=== PATIENT | male | born 1970 | race African-American/Black ===

== ENCOUNTER 2019-09-07 19:14 | Observation (INO) ==
[2019-09-07 20:04] LABS: Basophils # (auto) 0.04 K/uL (0-0.2); Basophils % (auto) 0.6 %; Eosinophils # (auto) 0.12 K/uL (0-0.5); Eosinophils % (auto) 1.7 %; Hemoglobin 16.2 g/dL (14.0-18.0); Immature Granulocytes # (auto) 0.02 K/uL (0.00-0.02); Immature Granulocytes % (auto) 0.3 %; Lymphocytes # (auto) 1.06 K/uL (1.2-3.4); Lymphocytes % (auto) 14.7 %; Mean Corpuscular Hemoglobin 34.2 pg (25-34); Mean Corpuscular Hgb Conc 36.8 g/dL (32-36); Mean Corpuscular Volume 92.8 fL (80-100); Monocytes # (auto) 0.63 K/uL (0.11-0.59); Monocytes % (auto) 8.7 %; Neutrophils # (auto) 5.34 K/uL (1.4-6.5); Platelet Count 209 K/uL (130-400); RDW Coefficient of Variation 12.8 % (11.5-14.5); RDW Standard Deviation 43.7 fL (36.4-46.3); Red Blood Count 4.74 M/uL (4.7-6.1); White Blood Count 7.21 K/uL (4.8-10.8)
--- NOTE | 2019-09-07 20:13 | XRay Report ---
XR chest 1V portable CLINICAL HISTORY: Atypical chest pain COMPARISON STUDY: No previous studies for comparison. FINDINGS: The cardiac and mediastinal contours are normal. There is no evidence of focal pulmonary co nsolidation. There is no evidence of failure. No pleural effusions are visualized.[ IMPRESSION: No active disease in the chest. Electronically signed by: Jas Dotson M.D. 09/07/2019 8:12 PM
[2019-09-07 20:24] LABS: Alanine Aminotransferase 82 U/L (12-78); Albumin Level 4.1 gm/dl (3.4-5.0); Aspartate Aminotransferase 62 U/L (15-37); BUN Creatinine Ratio 13.6 (10-20); Blood Urea Nitrogen 17 mg/dl (7-18); Calcium 9.5 mg/dl (8.5-10.1); Carbon Dioxide 28 mmol/L (21-32); Chloride 103 mmol/L (98-107); Est GFR (African American) 77.9; Est GFR (Non-African American) 67.2; Glucose 125 mg/dl (70-99); Lipase 70 U/L (73-393); Potassium 3.5 mmol/L (3.5-5.1); Sodium 138 mmol/L (136-145)
[2019-09-07 20:27] LABS: Alkaline Phosphatase 67 U/L (45-117); Bilirubin,Total 0.9 mg/dl (0.2-1); Total Protein 8.1 gm/dl (6.4-8.2)
[2019-09-07 20:45] LABS: D Dimer 500 ug/L FEU (0-500)
[2019-09-07 22:59] LABS: Magnesium 2.3 mg/dl (1.8-2.4)
[2019-09-07 23:36] LABS: Partial Thromboplastin Ratio 0.9; Partial Thromboplastin Time 25.4 Seconds (21.0-31.0)
[2019-09-07] MEDS ORDERED: ASPIRIN 325 MG ECTAB PO STA (23:48)
[2019-09-07] MEDS ORDERED: hydroCHLOROthiazide 25 MG TAB ONE (23:54)
[2019-09-07] MEDS ORDERED: ASPIRIN 81 MG ECTAB PO ONE (23:55)
--- NOTE | 2019-09-08 00:29 | Emergency Department Note ---
Entered by Jean Verdugo acting as a scribe for Jose Ramon Norton MD History of Present Illness General Chief complaint: Cardiac Assessment Stated complaint: CARDIAC ASSESSMENT, Source: patient and other (guards) History of Present Illness Onset (ago): hour(s) (7.5) Location: chest and left (upper) Pain Consistency: + now resolved Quality: + aching Relieved By: + other (lying down) Associated symptoms: + other (sweating, lightheaded); no shortness of breath The patient is a 49 y/o male w/ PMHx HTN, high triglycerides, neuropathy, prediabetes who presents to the ED w/ CC of a resolved episode of achiness to the left upper chest that occurred 7.5 hours ago. The patient states he is in a dry cell at the care home with no human contact. He reports around 1200 today, he developed achiness in his left upper chest, started sweating, and became lightheaded. Lying down was the only way to help his symptoms. He states the temperature in the cell was normal despite his sweating. The patient notes he does not know how long it lasted for, and he currently does not have his symptoms. He states his EKG at the care home was abnormal, so they sent him to the ED. The guards report he has a history of HTN and takes hydrochlorothiazide. They note he has not been taking for the past 5 days because he was placed in the dry cell. The patient states he has a significant family history of heart trouble with his parents, and he has not had a stress test before. He reports he has a heavy history of cocaine and tobacco use. The patient notes he last used cocaine in 2003 and last smoked a cigarette on 06/07/19. He denies shortness of breath. Home Medications Home Medications Medication Instructions Recorded Confirmed Type Therm-M 1 tab PO DAILY 09/07/19 09/07/19 History gntrzztmw-dynxswlh-yivurwa ala 1 tab PO DAILY 09/07/19 09/07/19 History [Biktarvy] cholecalciferol (vitamin D3) 5,000 unit PO DAILY 09/07/19 09/07/19 History [Vitamin D3] gemfibrozil [Lopid] 600 mg PO BID 09/07/19 09/07/19 History hydrochlorothiazide 25 mg PO DAILY 09/07/19 09/07/19 History Allergies Allergy/AdvReac Type Severity Reaction Status Date / Time lidocaine [From Xylocaine] Allergy Unknown Verified 09/07/19 19:59 lactose AdvReac Gastrointestinal Verified 09/07/19 19:59 Upset CONTRAST DYE Allergy Unknown Uncoded 09/07/19 19:59 SEAFOOD Allergy Unknown Uncoded 09/07/19 19:59 Past Med/Surg History Medical History Prediabetes High triglycerides Neuropathy HTN (hypertension) Surgical History No pertinent past surgical history Family History Other Heart disease Hypertension Social History Preferred Language: Israeli Feels Safe at Home: Yes Smoking Status: Former smoker Review of Systems See HPI for pertinent positives & negatives. and A total of 10 systems reviewed and were otherwise negative Physical Exam Vital Signs Vital Signs - 24 hr 09/07/19 19:17 09/07/19 20:00 09/07/19 20:21 Temperature 37.2 C Temperature Source Oral Sepsis Action Taken by Nursing No Action Required Pulse Rate 104 H Pulse Rate [Finger] 95 H Pulse Rhythm [Finger] Pulse Strength [Finger] Respiratory Rate 20 20 Respiratory Effort / Characteristics Non-Labored Spontaneous Non-Labored Spontaneous Respiratory Depth Normal Normal Respiratory Pattern Blood Pressure 146/96 H Blood Pressure [Right Arm] 152/105 H Blood Pressure Mean 112 Blood Pressure Mean [Right Arm] 120 Pulse Oximetry 99 99 98 Oxygen Delivery Method Room Air Room Air Room Air 09/07/19 21:23 09/07/19 23:02 09/07/19 23:57 Temperature Temperature Source Sepsis Action Taken by Nursing Pulse Rate Pulse Rate [Finger] 84 85 88 Pulse Rhythm [Finger] Regular Regular Pulse Strength [Finger] Normal Normal Respiratory Rate 20 20 20 Respiratory Effort / Characteristics Non-Labored Spontaneous Non-Labored Spontaneous Respiratory Depth Normal Normal Respiratory Pattern Regular Regular Blood Pressure Blood Pressure [Right Arm] 160/108 H 153/101 H 153/101 H Blood Pressure Mean Blood Pressure Mean [Right Arm] 125 118 118 Pulse Oximetry 98 97 98 Oxygen Delivery Method Room Air Room Air Room Air Constitutional: Vital signs reviewed. Eyes: Pupils are equal round reactive to light. Conjunctiva are noninjected. ENT: Pharynx is clear without erythema or exudate. Mucous membranes are moist. Neck supple without meningeal signs. Respiratory: Clear to auscultation bilaterally. Breath sounds are equal bilaterally. Cardiovascular: Regular rate and rhythm. No rubs or gallops. GI: Soft, nondistended and nontender. Bowel sounds are present. Musculoskeletal: No peripheral edema. No lower extremity tenderness. Integumentary: No cyanosis. Neurological: The patient is awake and alert. No focal deficits. Psychiatric: Normal affect. Course 1925: Past medical records reviewed. The patient was evaluated in room A04B. A complete history and physical exam was performed. 2057: I reevaluated the patient. He currently has no symptoms. His troponin at 1999 was 0 with a negative lab d-dimer. A repeat troponin will be taken at 2129. 2212: Upon reevaluation, the patient is resting comfortably and is chest pain free. I discussed laboratory and radiographic results with him. His HEART score is 4. He verbalized agreement of the treatment plan. The patient will be evaluated for further management and care. 2222: I reviewed the patient's case with Dr. Arenas, [place]ist. He will evaluate the patient for further management. Administered Medications Discontinued Medications Aspirin (Ecotrin Ectab) Confirm Administered Dose 81 mg PO .STK-MED ONE Stop: 09/07/19 23:56 Last Admin: 09/07/19 23:56 Dose: 81 mg Documented by: [id number] Hydrochlorothiazide (Hctz) Confirm Administered Dose 25 mg .ROUTE .STK-MED ONE Stop: 09/07/19 23:55 Last Admin: 09/07/19 23:57 Dose: 25 mg Documented by: [id number] Medical Decision Making Differential Diagnosis Differential diagnosis includes: unstable angina, FL, pleurisy, PE, pneumonia, MSK pain Medical Records Attestation: I reviewed the patient's medical records. I did perform a limited focused review of portions of the patient's old chart on the electronic medical record. The patient has had no recent pertinent visits to this hospital. Home Medications Current Medication List: was personally reviewed by me Laboratory Data Attestation: I reviewed the patient's lab results. Result diagrams: 09/07/19 19:56 09/07/19 19:56 Lab Results 09/07/19 09/07/19 09/07/19 Range/Units 19:11 19:56 19:56 WBC 7.21 (4.8-10.8) K/uL RBC 4.74 (4.7-6.1) M/uL Hgb 16.2 (14.0-18.0) g/dL Hct 44.0 (42-52) % MCV 92.8 (80-100) fL MCH 34.2 H (25-34) pg MCHC 36.8 H (32-36) g/dL RDW Std Deviation 43.7 (36.4-46.3) fL RDW Coeff of Selina 12.8 (11.5-14.5) % Plt Count 209 (130-400) K/uL MPV 10.0 (7.4-10.4) fL Immature Gran % (Auto) 0.3 % Neut % (Auto) 74.0 % Lymph % (Auto) 14.7 % [place] % (Auto) 8.7 % Eos % (Auto) 1.7 % Baso % (Auto) 0.6 % Immature Gran # (Auto) 0.02 (0.00-0.02) K/uL Neut # (Auto) 5.34 (1.4-6.5) K/uL Lymph # (Auto) 1.06 L (1.2-3.4) K/uL [place] # (Auto) 0.63 H (0.11-0.59) K/uL Eos # (Auto) 0.12 (0-0.5) K/uL Baso # (Auto) 0.04 (0-0.2) K/uL APTT (21.0-31.0) Seconds PTT Ratio D-Dimer Cancelled Sodium 138 (136-145) mmol/L Potassium 3.5 (3.5-5.1) mmol/L Chloride 103 (98-107) mmol/L Carbon Dioxide 28 (21-32) mmol/L Anion Gap 8.0 (3-11) BUN 17 (7-18) mg/dl Creatinine 1.25 (0.6-1.4) mg/dl Est Cr Clr Drug Dosing Not Reportable Est GFR ( Amer) 77.9 Est GFR (Non-Af Amer) 67.2 BUN/Creatinine Ratio 13.6 (10-20) Glucose 125 H (70-99) mg/dl Calcium 9.5 (8.5-10.1) mg/dl Magnesium 2.3 (1.8-2.4) mg/dl Total Bilirubin 0.9 (0.2-1) mg/dl AST 62 H (15-37) U/L ALT 82 H (12-78) U/L Alkaline Phosphatase 67 (45-117) U/L POC Troponin I (0-0.045) ng/ml Total Protein 8.1 (6.4-8.2) gm/dl Albumin 4.1 (3.4-5.0) gm/dl Globulin 4.0 (2.5-4.0) gm/dl Albumin/Globulin Ratio 1.0 (0.9-2) Lipase 70 L (73-393) U/L 09/07/19 09/07/19 09/07/19 Range/Units 20:29 20:29 21:45 WBC (4.8-10.8) K/uL RBC (4.7-6.1) M/uL Hgb (14.0-18.0) g/dL Hct (42-52) % MCV (80-100) fL MCH (25-34) pg MCHC (32-36) g/dL RDW Std Deviation (36.4-46.3) fL RDW Coeff of Selina (11.5-14.5) % Plt Count (130-400) K/uL MPV (7.4-10.4) fL Immature Gran % (Auto) % Neut % (Auto) % Lymph % (Auto) % [place] % (Auto) % Eos % (Auto) % Baso % (Auto) % Immature Gran # (Auto) (0.00-0.02) K/uL Neut # (Auto) (1.4-6.5) K/uL Lymph # (Auto) (1.2-3.4) K/uL [place] # (Auto) (0.11-0.59) K/uL Eos # (Auto) (0-0.5) K/uL Baso # (Auto) (0-0.2) K/uL APTT 25.4 (21.0-31.0) Seconds PTT Ratio 0.9 D-Dimer 500 Sodium (136-145) mmol/L Potassium (3.5-5.1) mmol/L Chloride (98-107) mmol/L Carbon Dioxide (21-32) mmol/L Anion Gap (3-11) BUN (7-18) mg/dl Creatinine (0.6-1.4) mg/dl Est Cr Clr Drug Dosing Est GFR ( Amer) Est GFR (Non-Af Amer) BUN/Creatinine Ratio (10-20) Glucose (70-99) mg/dl Calcium (8.5-10.1) mg/dl Magnesium (1.8-2.4) mg/dl Total Bilirubin (0.2-1) mg/dl AST (15-37) U/L ALT (12-78) U/L Alkaline Phosphatase (45-117) U/L POC Troponin I < 0.03 (0-0.045) ng/ml Total Protein (6.4-8.2) gm/dl Albumin (3.4-5.0) gm/dl Globulin (2.5-4.0) gm/dl Albumin/Globulin Ratio (0.9-2) Lipase (73-393) U/L Imaging Data Radiologist's Impression: Radiology results as stated below per my review and the radiologist's interpretation: XR chest 1V portable CLINICAL HISTORY: Atypical chest pain COMPARISON STUDY: No previous studies for comparison. FINDINGS: The cardiac and mediastinal contours are normal. There is no evidence of focal pulmonary consolidation. There is no evidence of failure. No pleural effusions are visualized.[ IMPRESSION: No active disease in the chest. Electronically signed by: Jas Dotson M.D. 09/07/2019 8:12 PM ECG Data Attestation: I personally reviewed and interpreted this ECG as follows: Indication: chest pain Rate (beats per minute): 81 Rhythm: normal sinus Findings: + other (Biphasic T-waves in V3-V6, LVH); no ST elevation Comparison ECG Date: no prior available Additional Comments: SECOND EKG IN THE SAME VISIT: Normal sinus 84, LVH. no ST elevation or PVCs. The t-waves have become upright. Blood Pressure Blood Pressure Findings: Elevated blood pressure Blood Pressure Disposition: further management by hospitalist [facility] Narrative I did evaluate the patient as noted above. The patient is presenting with left- sided chest pain today. It is now resolved. He does have multiple risk factors for cardiac disease including family history, high triglycerides, hypertension, diabetes, former tobacco and cocaine abuse. IV access was established. 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 I did order and personally review the patient's 12-lead EKG as described above. His twelve-lead EKG shows T wave abnormalities as noted above. No EKG was available for comparison. He is currently without chest pain. I did order and personally reviewed the images of the patient's chest x-ray as described above. Chest x-ray was unremarkable. I did order and review the patient's blood work as noted in the electronic medical record. D-dimer is negative. Troponin is 0. I did repeat his twelve- lead EKG as well as a second troponin 90 minutes after the first. The second troponin was negative but his twelve-lead EKG now shows that his T wave inversions are gone. Given his multiple risk factors as well as dynamic EKG changes I did recommend hospitalization. He does have a heart score of 4 and therefore does not qualify for the heart pathway for early discharge from the ED. I did talk to the patient who is agreeable to hospitalization. I did discuss case with the hospitalist and case management manager. Impression & Plan Left-sided chest pain, Abnormal ECG Discharge Plan Visit Data Chief Complaint: Cardiac Assessment Stated Complaint: CARDIAC ASSESSMENT, ED Provider: Jose Ramon Norton Discharge Problem: Left-sided chest pain, Abnormal ECG Patient Disposition: Being Evaluated by Hospitalist Forms Stand Alone Forms: My [facility] Prescriptions Prescriptions: No Action gemfibrozil [Lopid] 600 mg Tablet 600 mg PO BID RF: 0 hydrochlorothiazide 25 mg Tablet 25 mg PO DAILY RF: 0 cholecalciferol (vitamin D3) [Vitamin D3] 5,000 unit Tablet 5,000 unit PO DAILY RF: 0 Biktarvy 50-200-25 mg Tablet 1 tab PO DAILY RF: 0 Therm-M 1 tab PO DAILY RF: 0 Referrals Referrals: [facility] [Primary Care Provider] - The scribe's documentation has been prepared under my direction and personally reviewed by me in its entirety. I confirm that the note above accurately reflects all work, treatment, procedures, and medical decision making performed by me.
--- NOTE | 2019-09-08 00:36 | History & Physical Report ---
Date of Service September 07, 2019 Assessment & Plan (1) Left-sided chest pain: Possibly from uncontrolled blood pressure secondary to medication noncompliance Rule out ACS hyperlipidemia on rx HIV, stable on regimen Transaminitis, possible fatty liver prediabetes ongoing tobacco abuse OBS PCU Facilitate home HCTZ Add CAROL inhibitor if still uncontrolled Follow troponin, stress echo if a.m. troponin within normal limits Check lipid profile, hemoglobin A1c Nicotine patch PRN DVT prophylaxis. Lovenox subcu Full code History of Present Illness Chief Complaint: Chest pain Primary Care Provider: BRETT Hawthorne History obtained from patient and records. Medical history significant for hypertension, hyperlipidemia, HIV, prediabetes, ongoing tobacco abuse. Patient had achy left-sided sided chest discomfort today associated with shortness of breath and diaphoreses. No unusual cough symptoms, no radiation. SBP 200s in usp as per patient. Patient refused diuretic Rx the last 2 days because of inconvenience with having to urinate after taking medication. Spontaneous resolution of chest pain. Chest pain would occur about twice a month the last few months. 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 Allergies Allergy/AdvReac Type Severity Reaction Status Date / Time Fish Containing Products Allergy Unknown Verified 09/08/19 07:45 lidocaine [From Xylocaine] Allergy Unknown Verified 09/07/19 19:59 shellfish derived Allergy Unknown Verified 09/08/19 07:45 lactose AdvReac Gastrointestinal Verified 09/07/19 19:59 Upset CONTRAST DYE Allergy Unknown Uncoded 09/07/19 19:59 SEAFOOD Allergy Unknown Uncoded 09/07/19 19:59 Home Medications Home Medications Medication Instructions Recorded Confirmed Type Therm-M 1 tab PO DAILY 09/07/19 09/07/19 History pmvgbbnvh-hseqioyh-dcohvqt ala 1 tab PO DAILY 09/07/19 09/07/19 History [Biktarvy] cholecalciferol (vitamin D3) 5,000 unit PO DAILY 09/07/19 09/07/19 History [Vitamin D3] gemfibrozil [Lopid] 600 mg PO BID 09/07/19 09/07/19 History hydrochlorothiazide 25 mg PO DAILY 09/07/19 09/07/19 History Past Med/Surg History Medical History Prediabetes High triglycerides Neuropathy HTN (hypertension) Surgical History No pertinent past surgical history Family History Sister Coronary heart disease 40's Father Coronary heart disease 40's Mother Coronary heart disease 40's Other Heart disease Hypertension Social History Preferred Language: Welsh Communication Ability: Effective Lip Reading Teacher Required: No Beliefs That Will Affect Care: None Current Living Situation: Other Current Living Situation Comment: [facility] Other Information That Helps Us Care for You: No ([facility]) Feels Safe at Home: Yes Safety Concerns: Feels Safe At This Time Smoking Status: Current some day smoker Tobacco Type: cigarettes and e- cigarettes ; Hx Alcohol Use: No Hx Substance Use: No Review of Systems Review of Systems: As per HPI, all 10 systems reviewed, all other ROS negative Physical Exam Physical Exam: GENERAL: Comfortable, slightly anxious, no respiratory distress SKIN: Normal color, warm HEENT: Alopecia, pink palpebral conjunctivae, no ptosis, dry buccal mucosa NECK : Supple, no tenderness CHEST : CTA, no tenderness HEART : RRR, no obvious murmurs ABDOMEN: Some distention, nontender EXTREMITIES : Minimal RLE swelling (chronic), minimal RLE/tenderness, no other conspicuous deformities noted NEUROLOGIC : Coherent, no facial asymmetry, no other gross focality Results & Data Vital Signs (Past 12 Hours) Vital Signs Temp Pulse Pulse Resp BP BP Pulse Ox 09/07/19 23:57 88 20 153/101 H 98 09/07/19 23:02 85 20 153/101 H 97 09/07/19 21:23 84 20 160/108 H 98 09/07/19 20:21 95 H 20 152/105 H 98 09/07/19 20:00 99 09/07/19 19:17 37.2 C 104 H 20 146/96 H 99 Laboratory Results Laboratory Results WBC 7.21 K/uL (4.8-10.8) 09/07/19 19:56 RBC 4.74 M/uL (4.7-6.1) 09/07/19 19:56 Hgb 16.2 g/dL (14.0-18.0) 09/07/19 19:56 Hct 44.0 % (42-52) 09/07/19 19:56 MCV 92.8 fL (80-100) 09/07/19 19:56 MCH 34.2 pg (25-34) H 09/07/19 19:56 MCHC 36.8 g/dL (32-36) H 09/07/19 19:56 RDW Std Deviation 43.7 fL (36.4-46.3) 09/07/19 19:56 RDW Coeff of Selina 12.8 % (11.5-14.5) 09/07/19 19:56 Plt Count 209 K/uL (130-400) 09/07/19 19:56 MPV 10.0 fL (7.4-10.4) 09/07/19 19:56 Immature Gran % (Auto) 0.3 % 09/07/19 19:56 Neut % (Auto) 74.0 % 09/07/19 19:56 Lymph % (Auto) 14.7 % 09/07/19 19:56 [place] % (Auto) 8.7 % 09/07/19 19:56 Eos % (Auto) 1.7 % 09/07/19 19:56 Baso % (Auto) 0.6 % 09/07/19 19:56 Immature Gran # (Auto) 0.02 K/uL (0.00-0.02) 09/07/19 19:56 Neut # (Auto) 5.34 K/uL (1.4-6.5) 09/07/19 19:56 Lymph # (Auto) 1.06 K/uL (1.2-3.4) L 09/07/19 19:56 [place] # (Auto) 0.63 K/uL (0.11-0.59) H 09/07/19 19:56 Eos # (Auto) 0.12 K/uL (0-0.5) 09/07/19 19:56 Baso # (Auto) 0.04 K/uL (0-0.2) 09/07/19 19:56 APTT 25.4 Seconds (21.0-31.0) 09/07/19 20:29 PTT Ratio 0.9 09/07/19 20:29 D-Dimer 500 ug/L FEU (0-500) 09/07/19 20:29 Sodium 138 mmol/L (136-145) 09/07/19 19:56 Potassium 3.5 mmol/L (3.5-5.1) 09/07/19 19:56 Chloride 103 mmol/L (98-107) 09/07/19 19:56 Carbon Dioxide 28 mmol/L (21-32) 09/07/19 19:56 Anion Gap 8.0 (3-11) 09/07/19 19:56 BUN 17 mg/dl (7-18) 09/07/19 19:56 Creatinine 1.25 mg/dl (0.6-1.4) 09/07/19 19:56 Est Cr Clr Drug Dosing Not Reportable 09/07/19 19:56 Est GFR ( Amer) 77.9 09/07/19 19:56 Est GFR (Non-Af Amer) 67.2 09/07/19 19:56 BUN/Creatinine Ratio 13.6 (10-20) 09/07/19 19:56 Glucose 125 mg/dl (70-99) H 09/07/19 19:56 Calcium 9.5 mg/dl (8.5-10.1) 09/07/19 19:56 Magnesium 2.3 mg/dl (1.8-2.4) 09/07/19 19:56 Total Bilirubin 0.9 mg/dl (0.2-1) 09/07/19 19:56 AST 62 U/L (15-37) H 09/07/19 19:56 ALT 82 U/L (12-78) H 09/07/19 19:56 Alkaline Phosphatase 67 U/L (45-117) 09/07/19 19:56 POC Troponin I < 0.03 ng/ml (0-0.045) 09/07/19 21:45 Total Protein 8.1 gm/dl (6.4-8.2) 09/07/19 19:56 Albumin 4.1 gm/dl (3.4-5.0) 09/07/19 19:56 Globulin 4.0 gm/dl (2.5-4.0) 09/07/19 19:56 Albumin/Globulin Ratio 1.0 (0.9-2) 09/07/19 19:56 Lipase 70 U/L (73-393) L 09/07/19 19:56 Diagnostic Findings Chest x-ray : No active disease EKG as per my interpretation : Rate 80, NSR, LAD, LAFB, LVH, diffuse T wave flattening
[2019-09-08] MEDS ORDERED: NITROGLYCERIN SL 0.4 MG/TAB TAB SL PRN (01:02)
[2019-09-08] MEDS ORDERED: MoRPHine SULFATE 4 MG/ML 1 ML CARP\\VIAL IV PRN (01:02)
[2019-09-08] MEDS ORDERED: ACETAMINOPHEN 325 MG TAB PO PRN (01:02)
[2019-09-08] MEDS ORDERED: TRAMADOL HCL 50 MG TABLET PO PRN (01:02)
[2019-09-08] MEDS ORDERED: PROMETHAZINE HCL 12.5 MG in SODIUM CHLORIDE 0.9% 50 ML IV PRN (01:02)
[2019-09-08] MEDS: NICOTINE 7 MG/24 HR TDSY TD SCH (02:52)
[2019-09-08 03:07] LABS: Basophils # (auto) 0.03 K/uL (0-0.2); Basophils % (auto) 0.5 %; Eosinophils # (auto) 0.22 K/uL (0-0.5); Eosinophils % (auto) 3.4 %; Hematocrit (blood only) 42.3 % (42-52); Hemoglobin 15.4 g/dL (14.0-18.0); Immature Granulocytes # (auto) 0.02 K/uL (0.00-0.02); Immature Granulocytes % (auto) 0.3 %; Lymphocytes # (auto) 1.34 K/uL (1.2-3.4); Lymphocytes % (auto) 20.8 %; Mean Corpuscular Hemoglobin 33.8 pg (25-34); Mean Corpuscular Hgb Conc 36.4 g/dL (32-36); Mean Corpuscular Volume 92.8 fL (80-100); Mean Platelet Volume 10.1 fL (7.4-10.4); Monocytes # (auto) 0.94 K/uL (0.11-0.59); Monocytes % (auto) 14.6 %; Neutrophils % (auto) 60.4 %; Platelet Count 205 K/uL (130-400); RDW Coefficient of Variation 12.9 % (11.5-14.5); RDW Standard Deviation 43.7 fL (36.4-46.3); Red Blood Count 4.56 M/uL (4.7-6.1); White Blood Count 6.45 K/uL (4.8-10.8)
[2019-09-08 03:17] LABS: Partial Thromboplastin Ratio 0.9
[2019-09-08 03:39] LABS: Alanine Aminotransferase 72 U/L (12-78); Albumin Level 3.7 gm/dl (3.4-5.0); Aspartate Aminotransferase 52 U/L (15-37); Blood Urea Nitrogen 17 mg/dl (7-18); Calcium 8.8 mg/dl (8.5-10.1); Carbon Dioxide 29 mmol/L (21-32); Chloride 103 mmol/L (98-107); Creatinine Clr Calc Pharmacy 89.2 ml/min; Est GFR (African American) 79.4; Est GFR (Non-African American) 68.5; Glucose 106 mg/dl (70-99); Potassium 3.4 mmol/L (3.5-5.1); Sodium 139 mmol/L (136-145)
[2019-09-08 03:44] LABS: Alkaline Phosphatase 61 U/L (45-117); Bilirubin,Total 0.7 mg/dl (0.2-1); Chol HDL Ratio 8; Cholesterol 219 mg/dl (0-200); Globulin 3.6 gm/dl (2.5-4.0); HDL Cholesterol 26 mg/dl; LDL Cholesterol Calculated 146 mg/dl; Total Protein 7.3 gm/dl (6.4-8.2); Triglycerides 233 mg/dl (0-150); Troponin I < 0.015 ng/ml (0-0.045); VLDL Cholesterol 47 mg/dl
[2019-09-08] MEDS ORDERED: POTASSIUM CHLORIDE 20 MEQ TABCR PO STA (03:46)
[2019-09-08 07:16] LABS: Estimated Average Glucose 103 mg/dl; Hemoglobin A1C 5.2 % (4.5-5.6)
[2019-09-08] MEDS: gemfibroziL 600 MG TAB PO SCH ×2 (08:36→21:13)
[2019-09-08] MEDS: ENOXAPARIN INJ 40 MG/0.4 ML SYR SQ SCH (08:38)
[2019-09-08] MEDS ORDERED: ASPIRIN 81 MG ECTAB PO SCH (09:00)
--- NOTE | 2019-09-08 10:35 | Cardiology Consultation ---
Date of Consultation September 08, 2019 Assessment & Plan (1) Left-sided chest pain: Atypical Did worsen with stress test (2) Abnormal stress test: Chest discomfort was reproduced Significant ischemic EKG changes in the inferior and lateral leads Mild inducible inferior wall hypokinesis There is a significant concern for obstructive coronary artery disease so we will proceed to cardiac catheterization for direct visualization of his coronary anatomy The pros, cons and alternatives to this procedure were discussed at great length with him, the patient states he understands, he is accepting of the risks, and wishes to proceed with a cardiac catheterization. He does have a history of allergy to dye and he will be pretreated with steroids per protocol (3) HTN (hypertension): Does have a long-standing history Has not been taking his hydrochlorothiazide last few days Will continue his hydrochlorothiazide but add lisinopril 20 mg daily for further blood pressure control and follow-up with primary physician as an outpatient He will need a BMP in 1 week after initiation of lisinopril. (4) Family history of premature CAD: Very strong family history with 3 first-degree relatives all developing coronary artery disease in their 40s History of Present Illness Reason for Consultation: chest pain, abnormal stress test Attending Physician: Matt Sargent MD History of Present Illness It was my pleasure to see Mr. Shafer in consultation today September 08, 2019. He is a very pleasant 49-year-old gentleman who presented to [facility] on 09/07/2019 with complaints of chest discomfort and elevated blood pressure. He is currently incarcerated at the [facility] and started developing chest discomfort approximately 2 days ago. He describes it as a dull achy sensation all across his left precordium that comes and goes. He does not think there is any pattern with exercise or activity. When it does occur he does have associated shortness of breath and occasional diaphoresis. But he denies any associated nausea, lightheadedness, dizziness or syncope. He denies any previously similar episodes. Of note he has not taken his hydrochlorothiazide for a few days noting that he did not want to take a diuretic while he was in no water cell. Allergies Allergy/AdvReac Type Severity Reaction Status Date / Time Fish Containing Products Allergy Unknown Verified 09/08/19 07:45 lidocaine [From Xylocaine] Allergy Unknown Verified 09/07/19 19:59 shellfish derived Allergy Unknown Verified 09/08/19 07:45 lactose AdvReac Gastrointestinal Verified 09/07/19 19:59 Upset CONTRAST DYE Allergy Unknown Uncoded 09/07/19 19:59 SEAFOOD Allergy Unknown Uncoded 09/07/19 19:59 Home Medications Home Medications Medication Instructions Recorded Confirmed Type Therm-M 1 tab PO DAILY 09/07/19 09/07/19 History rjsbxhnlk-psmzhujn-bswnlhh ala 1 tab PO DAILY 09/07/19 09/07/19 History [Biktarvy] cholecalciferol (vitamin D3) 5,000 unit PO DAILY 09/07/19 09/07/19 History [Vitamin D3] gemfibrozil [Lopid] 600 mg PO BID 09/07/19 09/07/19 History hydrochlorothiazide 25 mg PO DAILY 09/07/19 09/07/19 History Patient History Medical History Prediabetes High triglycerides Neuropathy HTN (hypertension) Surgical History No pertinent past surgical history Family History Sister Coronary heart disease 40's Father Coronary heart disease 40's Mother Coronary heart disease 40's Other Heart disease Hypertension Social History Preferred Language: Serbian Communication Ability: Effective Resp Ther Required: No Beliefs That Will Affect Care: None Current Living Situation: Other Current Living Situation Comment: [facility] Other Information That Helps Us Care for You: No ([facility] [employer]) Feels Safe at Home: Yes Safety Concerns: Feels Safe At This Time Smoking Status: Current some day smoker Tobacco Type: cigarettes and e- cigarettes ; Hx Alcohol Use: No Hx Substance Use: No Review of Systems Review of Systems: All systems reviewed & are unremarkable except as noted in HPI & below Physical Exam Physical Exam: General: Awake, alert and oriented x 3. No acute distress. HEENT: Normocephalic, atraumatic. Pupils equal, round and reactive to light and accommodation. Extraocular muscles are intact. Anicteric sclera. Moist mucous membranes. Neck: No JVD. No bruit. Cardiovascular: Regular. Positive S-4. Normal S-1 and S-2. No S-3. No murmurs or rubs. Pulmonary: Clear to auscultation B/L. No rales, rhonchi or wheezing Abdomen: Bowel sounds x 4, soft. No rebound, guarding or tenderness. No organomegaly. Extremities: No clubbing, cyanosis or edema. +2 pedal pulses bilaterally. Skin: Warm and dry. Results & Data Vital Signs (Past 12 Hours) Vital Signs Temp Pulse Pulse Resp BP Pulse Ox 09/08/19 07:52 36.7 C 84 20 143/99 H 95 09/08/19 03:52 37.1 C 68 17 145/88 H 98 09/08/19 01:23 88 09/08/19 00:50 36.9 C 88 18 161/100 H 99 09/07/19 23:57 88 20 153/101 H 98 09/07/19 23:02 85 20 153/101 H 97
[2019-09-08] MEDS ORDERED: NiCARDipine HCL INJ 2.5 MG/ML 10 ML AMP ONE (10:51)
[2019-09-08] MEDS ORDERED: methylPREDNISolone 125 MG/2 ML VIAL ONE (10:51)
[2019-09-08] MEDS ORDERED: DiphenhydrAMINE HCL 50 MG/ML VIAL ONE (10:51)
[2019-09-08] MEDS ORDERED: HEPARIN (PORCINE) 1000 UNIT/ML 10 ML (CATH LAB USE ONLY) ONE ×2 (10:51→11:01)
[2019-09-08] MEDS ORDERED: fentaNYL citrate 100 MCG/2 ML VIAL ONE (10:52)
[2019-09-08] MEDS ORDERED: MIDAZOLAM HCL 1 MG/ML 2ML VIAL ONE (10:53)
[2019-09-08] MEDS ORDERED: NITROGLYCERIN/D5W 100MCG/ML 20ML SYR ONE (10:53)
[2019-09-08] MEDS ORDERED: raNITIdine HCl 25 MG/ML VIAL IV ONE (11:14)
--- NOTE | 2019-09-08 11:16 | Pre Anesthesia Assessment ---
Date of Service September 08, 2019 Pre Sedation Assessment Vital Signs Temp Pulse Pulse Resp BP BP Pulse Ox 09/08/19 07:52 98.1 F 84 20 143/99 H 95 09/08/19 03:52 98.8 F 68 17 145/88 H 98 09/08/19 01:23 88 09/08/19 00:50 98.4 F 88 18 161/100 H 99 09/07/19 23:57 88 20 153/101 H 98 09/07/19 23:02 85 20 153/101 H 97 09/07/19 21:23 84 20 160/108 H 98 09/07/19 20:21 95 H 20 152/105 H 98 09/07/19 20:00 99 09/07/19 19:17 99.0 F 104 H 20 146/96 H 99 Cardiovascular RRR, no murmur, no edema Respiratory normal respiratory effort, lungs clear to auscultation Pre-Sedation Airway Assessment Smoking Status: Current some day smoker Hx Sleep Apnea: No Hx Difficult Intubation: No Short, Thick Neck: No Thyromental Distance: > or= 3.5 Finger Breadths Oral Cavity: + WNL Mallampati Class: III ASA: ASA3 Procedure Planning Contraindications for Sedation: none Current Medications Reviewed: Yes Notes The planned sedation has been discussed with the patient. Informed Consent was obtained. I have identified the patient, determined the appropriateness of sedation and have assessed the patient immediately prior to the procedure. All medicine(s) and interventions are by my order.
--- NOTE | 2019-09-08 11:37 | Post Anesthesia Assessment ---
Date of Service September 08, 2019 Post Sedation Assessment Vital Signs Temp Pulse Pulse Resp BP BP Pulse Ox 09/08/19 07:52 98.1 F 84 20 143/99 H 95 09/08/19 03:52 98.8 F 68 17 145/88 H 98 09/08/19 01:23 88 09/08/19 00:50 98.4 F 88 18 161/100 H 99 09/07/19 23:57 88 20 153/101 H 98 09/07/19 23:02 85 20 153/101 H 97 09/07/19 21:23 84 20 160/108 H 98 09/07/19 20:21 95 H 20 152/105 H 98 09/07/19 20:00 99 09/07/19 19:17 99.0 F 104 H 20 146/96 H 99 Recovery Score Activity: Moves 4 extremities Respiration: Deep Breath/Cough Circulation: +/-20% PreAnes Value Consciousness: Fully Awake Oxygen Saturation: O2 needed for >90% Post Sedation Plan On clinical assessment, the patient appears to have tolerated the sedation without complications. Patient is recovering as anticipated. Patient will continue to be monitored by nursing and may be discharged when sedation discharge criteria are met per below protocol. Upon Completions of procedure and additional 15 minutes continue every 5 minute vital signs and the P.A.R. score; then discharge to a Phase I or Fast Track to Phase II per the following guidelines: * Discharge Patient to appropriate Phase II area if PAR is 8 or greater or return to pre- procedure baseline. The post - procedure orders will be as directed. * If PAR score is less than 8 or not return to pre-procedure baseline then patient will follow Phase I monitoring till PAR is reached for Phase II. The Phase I may be done in procedure room or may call to secure a Phase I area. * If naloxone or flumazenil are used for reversal, hold in Phase I for co ntinued monitoring from when last reversal dose was given for a minimum of 60 minutes or longer pending the nurse and/or physician discretion of patient condition before discharge to Phase II. Please call the Sedation Physician to re-evaluate and complete post-note for discharge to Phase II area. Do NOT discharge from procedure sedation or Phase 1 until post- sedation evaluation note is complete by procedure /sedation MD Sedation Discharge Instructions to be given to the patient at discharge to home.
--- NOTE | 2019-09-08 11:43 | Cardiac Catheterization ---
[facility] Data: [employer] Attendant Cardiac Status Clinical evaluation leading to the procedure CAD Presenation: Positive Stress Test Anginal Classification: CCS II Heart Failure: No Cardiogenic Shock within 24 Hours: No Cardiac Arrest within 24 Hours: No Imaging Studies Past 6 Months: Yes Stress Studies Past 6 Months: Yes Stress Echocardiogram: Yes - Positive and Risk/Extent of Ischemia (High) Diagnostic Physicians Name: Dejuan Felder MD Status: Elective Closure Device Percutaneous Entry Location: Radial Closure Device: Radial Band Recommendations: Medical Therapy and/or Counseling Intraprocedure Events Significant Disection: No Perforation: No Cardiac Cath Procedure Full Procedure Date September 08, 2019 Pre-Procedure Diagnosis Pre-Procedure Diagnosis: Positive Stress Test AUC Score AUC Score: 7 Post-Procedure Diagnosis Post-Procedure Diagnosis: Normal Coronary Arteries Procedure(s) Performed Procedure(s) Performed: Coronary Angiography and Left Heart Cath [employer] Sewing Machine Operator Dejuan Felder MD Hand Stitcher(s) Doug Estimated Blood Loss Estimated Blood Loss: 5 Medication(s) Medication(s): Fentanyl, Heparin, Lidocaine 1%, Nicardipine, Nitroglycerin and Versed Summary of Findings Indication: Abnormal stress test Access: 6 Fr right radial artery Catheters: [place] Findings: LM -angiographically normal LAD -large caliber vessel, angiographically normal. Wraps around apex. Large caliber first diagonal without significant disease Circumflex -moderate caliber vessel, codominant angiographically normal. Gives off 2 small OM's without significant disease. Distal small PLB/PDA with mild diffuse disease Ramusangiographically normal RCA -moderate caliber vessel, codominant, intragraft be normal. Small PDA without any disease. LVEDP -3 Arterial Closure: TR band Summary: 1. Angiographically normal coronary arteries 2. Normal intracardiac filling pressure Recommendations: Continued ASCVD risk factor modification and evaluation of noncardiac causes of chest pain per Dr. Funk. Hemodynamics Rest Ao:: 111/81/78 Final Ao: 123/87/103 LV: 116/3 Recommendations Recommendations: Medical Therapy and/or Counseling Specimens Specimens: None Radiation Exposure (mGy) 1127 Contrast (mls) 45 Fluids (cc crystalloids) Fluids (cc crystalloids): 50 Drains Drains: None Anesthesia Moderate Procedural Complication(s) None Disposition Recovery Room\PACU I attest to the content of the Intraoperative Record and any orders documented therein. Any exceptions are noted below.
[2019-09-08] MEDS: THERA M PO SCH (13:23)
[2019-09-08] MEDS: BIKTARVY PO SCH (13:24)
[2019-09-08] MEDS ORDERED: SODIUM CHLORIDE 0.9% 500 ML IV ONE (18:09)
[2019-09-08] MEDS ORDERED: DiphenhydrAMINE HCL 50 MG/ML VIAL IV PRN (18:10)
--- NOTE | 2019-09-08 18:20 | Hospitalist Progress Note ---
Date of Service September 08, 2019 Assessment & Plan (1) Left-sided chest pain: likely from uncontrolled blood pressure secondary to medication noncompliance ACS ruled out -- s/p Cardiac Cath: normal coronaries -- increase Lisinopril continue HCTZ -- monitor -- reports pruritus on BL forearm has history of allergy (described as hives, shortness of breath) to contrast dye- pretreated prior to cardiac cath Zyrtec ordered, PRN Benadryl -- monitor closely hyperlipidemia on Rx --lipid profile noted continue Gemfibrozil HIV, stable on regimen Transaminitis, possible fatty liver prediabetes a1c 5.2 ongoing tobacco abuse DVT prophylaxis. Lovenox subcu Full code [facility] medically stable Subjective ff up for chest pain s/p cardiac cath chest pain free sitting up in bed, comfortable, not in distress reports itching on bilateral forearms and groin, associated with rash- which seems to be improving now no shortness of breath, throat or lip swelling denies dizziness, palpitations no other symptoms Review of Systems Review of Systems: All systems reviewed & are unremarkable except as noted in HPI & below Physical Exam Physical Exam: General- oriented x 3, not in distress, speaks in sentences with no effort or accessory muscle use Head- atraumatic Eyes- PERRL, EOMI, anicteric ENT- oropharynx clear Neck- supple, no JVD, no adenopathy, no thyromegaly; carotids +2/2, no bruits appreciated Lungs- clear to auscultation bilaterally, no rales/wheezes Heart- mild tachycardia, regular rhythm; no murmur, no gallop, no rub appreciated Abdomen- normal bowel sounds, nondistended, soft, nontender, no masses or hepatosplenomegaly no rashes noted on the inguinal region Extremities- right radial aspect: no bleeding no rash noted on bilateral forearm no pretibial edema, no calf tenderness; peripheral pulses intact Neuro- alert, oriented x 3; CN 2-12 grossly intact; motor 5/5 bilaterally;sensation 100% on all extremities; no other gross focal neurologic deficits Skin- warm & dry Results & Data Vital Signs (Past 12 Hours) Vital Signs Temp Pulse Resp BP BP Pulse Ox 09/08/19 15:14 37.0 C 92 H 12 112/78 97 09/08/19 14:00 88 16 116/70 99 10/14/19 13:30 96 H 18 128/83 99 09/08/19 13:00 79 16 130/77 99 09/08/19 12:45 82 16 123/82 98 09/08/19 12:30 89 16 118/74 98 09/08/19 12:15 79 16 107/70 99 09/08/19 12:00 36.5 C 97 H 16 129/88 99 09/08/19 07:52 36.7 C 84 20 143/99 H 95 Laboratory Results Laboratory Results - last 24 hr 09/07/19 09/07/19 09/07/19 19:11 19:56 19:56 WBC 7.21 RBC 4.74 Hgb 16.2 Hct 44.0 MCV 92.8 MCH 34.2 H MCHC 36.8 H RDW Std Deviation 43.7 RDW Coeff of Selina 12.8 Plt Count 209 MPV 10.0 Immature Gran % (Auto) 0.3 Neut % (Auto) 74.0 Lymph % (Auto) 14.7 [place] % (Auto) 8.7 Eos % (Auto) 1.7 Baso % (Auto) 0.6 Immature Gran # (Auto) 0.02 Neut # (Auto) 5.34 Lymph # (Auto) 1.06 L [place] # (Auto) 0.63 H Eos # (Auto) 0.12 Baso # (Auto) 0.04 APTT PTT Ratio POC D-Dimer D-Dimer Cancelled Sodium 138 Potassium 3.5 Chloride 103 Carbon Dioxide 28 Anion Gap 8.0 BUN 17 Creatinine 1.25 Est Cr Clr Drug Dosing Not Reportable Est GFR ( Amer) 77.9 Est GFR (Non-Af Amer) 67.2 BUN/Creatinine Ratio 13.6 Glucose 125 H Estimat Average Glucose Hemoglobin A1c Calcium 9.5 Magnesium 2.3 Total Bilirubin 0.9 AST 62 H ALT 82 H Alkaline Phosphatase 67 POC Troponin I Troponin I Total Protein 8.1 Albumin 4.1 Globulin 4.0 Albumin/Globulin Ratio 1.0 Triglycerides Cholesterol LDL Cholesterol, Calc VLDL Cholesterol, Calc HDL Cholesterol Cholesterol/HDL Ratio Lipase 70 L Nasal Screen MRSA (PCR) 09/07/19 09/07/19 09/07/19 19:56 20:01 20:29 WBC RBC Hgb Hct MCV MCH MCHC RDW Std Deviation RDW Coeff of Selina Plt Count MPV Immature Gran % (Auto) Neut % (Auto) Lymph % (Auto) [place] % (Auto) Eos % (Auto) Baso % (Auto) Immature Gran # (Auto) Neut # (Auto) Lymph # (Auto) [place] # (Auto) Eos # (Auto) Baso # (Auto) APTT PTT Ratio POC D-Dimer TNP D-Dimer 500 Sodium Potassium Chloride Carbon Dioxide Anion Gap BUN Creatinine Est Cr Clr Drug Dosing Est GFR ( Amer) Est GFR (Non-Af Amer) BUN/Creatinine Ratio Glucose Estimat Average Glucose 103 Hemoglobin A1c 5.2 Calcium Magnesium Total Bilirubin AST ALT Alkaline Phosphatase POC Troponin I < 0.03 Troponin I Total Protein Albumin Globulin Albumin/Globulin Ratio Triglycerides Cholesterol LDL Cholesterol, Calc VLDL Cholesterol, Calc HDL Cholesterol Cholesterol/HDL Ratio Lipase Nasal Screen MRSA (PCR) 09/07/19 09/07/19 09/08/19 20:29 21:45 01:00 WBC RBC Hgb Hct MCV MCH MCHC RDW Std Deviation RDW Coeff of Selina Plt Count MPV Immature Gran % (Auto) Neut % (Auto) Lymph % (Auto) [place] % (Auto) Eos % (Auto) Baso % (Auto) Immature Gran # (Auto) Neut # (Auto) Lymph # (Auto) [place] # (Auto) Eos # (Auto) Baso # (Auto) APTT 25.4 PTT Ratio 0.9 POC D-Dimer D-Dimer Sodium Potassium Chloride Carbon Dioxide Anion Gap BUN Creatinine Est Cr Clr Drug Dosing Est GFR ( Amer) Est GFR (Non-Af Amer) BUN/Creatinine Ratio Glucose Estimat Average Glucose Hemoglobin A1c Calcium Magnesium Total Bilirubin AST ALT Alkaline Phosphatase POC Troponin I < 0.03 Troponin I Total Protein Albumin Globulin Albumin/Globulin Ratio Triglycerides Cholesterol LDL Cholesterol, Calc VLDL Cholesterol, Calc HDL Cholesterol Cholesterol/HDL Ratio Lipase Nasal Screen MRSA (PCR) Negative 09/08/19 09/08/19 09/08/19 02:54 02:54 02:54 WBC 6.45 RBC 4.56 L Hgb 15.4 Hct 42.3 MCV 92.8 MCH 33.8 MCHC 36.4 H RDW Std Deviation 43.7 RDW Coeff of Selina 12.9 Plt Count 205 MPV 10.1 Immature Gran % (Auto) 0.3 Neut % (Auto) 60.4 Lymph % (Auto) 20.8 [place] % (Auto) 14.6 Eos % (Auto) 3.4 Baso % (Auto) 0.5 Immature Gran # (Auto) 0.02 Neut # (Auto) 3.90 Lymph # (Auto) 1.34 [place] # (Auto) 0.94 H Eos # (Auto) 0.22 Baso # (Auto) 0.03 APTT 25.0 PTT Ratio 0.9 POC D-Dimer D-Dimer Sodium 139 Potassium 3.4 L Chloride 103 Carbon Dioxide 29 Anion Gap 7.0 BUN 17 Creatinine 1.23 Est Cr Clr Drug Dosing 89.2 Est GFR ( Amer) 79.4 Est GFR (Non-Af Amer) 68.5 BUN/Creatinine Ratio 14.0 Glucose 106 H Estimat Average Glucose Hemoglobin A1c Calcium 8.8 Magnesium Total Bilirubin 0.7 AST 52 H ALT 72 Alkaline Phosphatase 61 POC Troponin I Troponin I < 0.015 Total Protein 7.3 Albumin 3.7 Globulin 3.6 Albumin/Globulin Ratio 1.0 Triglycerides 233 H Cholesterol 219 H LDL Cholesterol, Calc 146 VLDL Cholesterol, Calc 47 HDL Cholesterol 26 Cholesterol/HDL Ratio 8 Lipase Nasal Screen MRSA (PCR)
[2019-09-08] MEDS ORDERED: lisinopriL 5 MG TAB PO ONE (19:00)
[2019-09-08] MEDS ORDERED: CETIRIZINE HCL 10 MG TABLET PO ONE (19:00)
[2019-09-09] MEDS: gemfibroziL 600 MG TAB PO SCH (07:34)
[2019-09-09] MEDS: NICOTINE 7 MG/24 HR TDSY TD SCH (07:35)
[2019-09-09] MEDS: ENOXAPARIN INJ 40 MG/0.4 ML SYR SQ SCH (07:36)
[2019-09-09 07:51] LABS: Basophils # (auto) 0.02 K/uL (0-0.2); Basophils % (auto) 0.2 %; Eosinophils # (auto) 0.11 K/uL (0-0.5); Eosinophils % (auto) 0.9 %; Hematocrit (blood only) 42.8 % (42-52); Hemoglobin 15.9 g/dL (14.0-18.0); Immature Granulocytes # (auto) 0.04 K/uL (0.00-0.02); Immature Granulocytes % (auto) 0.3 %; Lymphocytes # (auto) 1.83 K/uL (1.2-3.4); Lymphocytes % (auto) 14.2 %; Mean Corpuscular Hemoglobin 34.5 pg (25-34); Mean Corpuscular Hgb Conc 37.1 g/dL (32-36); Mean Corpuscular Volume 92.8 fL (80-100); Monocytes # (auto) 1.45 K/uL (0.11-0.59); Monocytes % (auto) 11.3 %; Neutrophils % (auto) 73.1 %; Platelet Count 231 K/uL (130-400); RDW Coefficient of Variation 12.9 % (11.5-14.5); RDW Standard Deviation 43.3 fL (36.4-46.3); Red Blood Count 4.61 M/uL (4.7-6.1); White Blood Count 12.85 K/uL (4.8-10.8)
[2019-09-09 08:25] LABS: BUN Creatinine Ratio 12.7 (10-20); Calcium 9.4 mg/dl (8.5-10.1); Creatinine Clr Calc Pharmacy 90.7 ml/min; Est GFR (Non-African American) 69.9; Potassium 3.6 mmol/L (3.5-5.1)
[2019-09-09] MEDS ORDERED: hydroCHLOROthiazide 25 MG TAB PO SCH (09:00)
[2019-09-09] MEDS ORDERED: ASPIRIN 81 MG ECTAB PO SCH (09:00)
[2019-09-09] MEDS ORDERED: lisinopriL 10 MG TAB PO SCH (09:00)
[2019-09-09] MEDS: THERA M PO SCH (10:03)
[2019-09-09] MEDS: BIKTARVY PO SCH (10:03)
--- NOTE | 2019-09-09 12:21 | Hospitalist Progress Note ---
Date of Service September 09, 2019 Assessment & Plan (1) Left-sided chest pain: likely from uncontrolled blood pressure secondary to medication noncompliance Acute Coronary Syndrome ruled out -- initially, Exercise Stress Test was considered positive, hence patient was referred for emergent cardiac cath -- s/p Cardiac Catheterization: normal coronaries 1. Angiographically normal coronary arteries 2. Normal intracardiac filling pressure -- Nanny Caregiver recommends to increase Lisinopril, given 10mg daily, BP normal continue HCTZ Low Na diet -- monitor -- reported pruritus on BL forearm after cardiac cath has history of allergy (described as hives, shortness of breath) to contrast dye- pretreated prior to cardiac cath Zyrtec ordered, PRN Benadryl pruritus, rash has resolved may use PRN Zyrtec hyperlipidemia on Rx --lipid profile: TG elevated at 233 Cholesterol elevated at 219 LDL 146 continue Gemfibrozil low fat diet, monitor regularly HIV, stable on regimen Elevated AST 52 monitor as outpatient ongoing tobacco abuse high school counselor on cessation [facility] up with Physician at the [facility] Subjective ff up for chest pain seen resting in bed, comfortable states he feels much better overall no recurrence of chest pain itching has resolved, no rashes, no shortness of breath, no throat/tongue swelling denies other symptoms states he is ready for discharge today Review of Systems Review of Systems: All systems reviewed & are unremarkable except as noted in HPI & below Physical Exam Physical Exam: General- oriented x 3, not in distress, speaks in sentences with no effort or accessory muscle use Eyes- anicteric Neck- no JVD Lungs- clear breath sounds bilaterally no crackles Heart- normal rate, regular rhythm; no murmurs Abdomen- normal bowel sounds, nondistended, soft, nontender Extremities- no pretibial edema, no calf tenderness Neuro- alert, oriented x 3; no gross focal neurologic deficits Skin- warm & dry, no rashes Results & Data Vital Signs (Past 12 Hours) Vital Signs Temp Pulse Resp BP Pulse Ox 09/09/19 11:26 36.9 C 87 22 118/76 98 09/09/19 07:33 36.9 C 79 16 147/95 H 98 09/09/19 03:45 36.9 C 107 H 20 157/80 H 98
--- NOTE | 2019-09-09 12:38 | Discharge Summary ---
Date of Service September 09, 2019 Admission HPI Per Admitting Provider History obtained from patient and records. Medical history significant for hypertension, hyperlipidemia, HIV, prediabetes, ongoing tobacco abuse. Patient had achy left-sided sided chest discomfort today associated with shortness of breath and diaphoreses. No unusual cough symptoms, no radiation. SBP 200s in jail as per patient. Patient refused diuretic Rx the last 2 days because of inconvenience with having to urinate after taking medication. Spontaneous resolution of chest pain. Chest pain would occur about twice a month the last few months. 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[place], -Irish ethnicity Admission Exam Per Admitting Provider GENERAL: Comfortable, slightly anxious, no respiratory distress SKIN: Normal color, warm HEENT: Alopecia, pink palpebral conjunctivae, no ptosis, dry buccal mucosa NECK : Supple, no tenderness CHEST : CTA, no tenderness HEART : RRR, no obvious murmurs ABDOMEN: Some distention, nontender EXTREMITIES : Minimal RLE swelling (chronic), minimal RLE/tenderness, no other conspicuous deformities noted NEUROLOGIC : Coherent, no facial asymmetry, no other gross focality Principal Diagnosis CHEST PAIN LIKELY SECONDARY TO UNCONTROLLED BLOOD PRESSURE Discharge Exam General- oriented x 3, not in distress, speaks in sentences with no effort or accessory muscle use Eyes- anicteric Neck- no JVD Lungs- clear breath sounds bilaterally no crackles Heart- normal rate, regular rhythm; no murmurs Abdomen- normal bowel sounds, nondistended, soft, nontender Extremities- no pretibial edema, no calf tenderness Neuro- alert, oriented x 3; no gross focal neurologic deficits Skin- warm & dry, no rashes Discharge Data Allergies Allergy/AdvReac Type Severity Reaction Status Date / Time Fish Containing Products Allergy Unknown Verified 09/08/19 07:45 shellfish derived Allergy Unknown Verified 09/08/19 07:45 lactose AdvReac Gastrointestinal Verified 09/07/19 19:59 Upset CONTRAST DYE Allergy Unknown Uncoded 09/07/19 19:59 SEAFOOD Allergy Unknown Uncoded 09/07/19 19:59 Consultations 09/07/19 22:12 ED Decision to Admit Stat 09/08/19 10:26 Consult Cardiology Routine Procedures Performed Operation Date: 09/08/19 11:00 Actual Procedures s Cineradiography w/Routine Exam - Austin Felder MD p Cath, Left with Cors and Vent - Austin Felder MD Ordered Studies 09/08/19 10:39 CL Cath Imgs for PACS use only Routine Hospital Course (1) Left-sided chest pain: likely from uncontrolled blood pressure secondary to medication noncompliance Acute Coronary Syndrome ruled out -- initially, Exercise Stress Test was considered positive, hence patient was referred for emergent cardiac cath -- s/p Cardiac Catheterization: normal coronaries 1. Angiographically normal coronary arteries 2. Normal intracardiac filling pressure -- Data Acquisition Technician recommends to increase Lisinopril, given 10mg daily, BP normal continue HCTZ Low Na diet -- monitor BP closely and titrate medications accordingly -- reported pruritus on BL forearm after cardiac cath has history of allergy (described as hives, shortness of breath) to contrast dye- pretreated prior to cardiac cath Zyrtec ordered, PRN Benadryl pruritus, rash has resolved may use PRN Zyrtec Hyperlipidemia --lipid profile: TG elevated at 233 Cholesterol elevated at 219 LDL 146 continue Gemfibrozil low fat diet, monitor regularly, and titrate medication as outpatient HIV, stable on regimen -- outpatient ff up Elevated AST 52 monitor as outpatient 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 [facility] Total Time Total Time Spent Total Time Spent (In Minutes): 40 minutes Discharge Plan Discharge Items Patient Disposition: Home - Self-Care Reason For Visit: CHEST PAIN Discharge Diagnosis: CHEST PAIN, LIKELY FROM UNCONTROLLED BLOOD PRESSURE Activity: Resume your previous activity Activity Comment: RESUME GRADUALLY TOLERATED Lifting: Wait until after follow-up appointment Exercise/Sports: Wait until after follow-up appointment Non-emergency contact: Primary Care Provider Call non-emergency contact if: you have any medication questions, your symptoms worsen, your pain is not controlled, your pain is worsening and your pain is concerning for you Follow-up/Referrals: [facility] [Primary Care Provider] - Diet: Low Fat and Low Sodium (2gm) Addtl Attending Provider Instructions: PLEASE REFER TO ACCOMPANYING HOSPITAL DISCHARGE SUMMARY FOR FURTHER DETAILS. LOW SODIUM, LOW CARBOHYDRATE AND LOW FAT DIET. ENCOURAGE TO DRINK WATER ADEQUATELY DAILY. NO SMOKING. Pending Studies at Discharge: No Stand-Alone Forms: My [facility] Medications and DC Order Prescriptions: New lisinopril 10 mg Tablet 10 mg PO QAM 30 Days Qty: 30 RF: 0 cetirizine [Zyrtec] 10 mg tablet 10 mg PO DAILY PRN (Reason: allergy symptoms) Qty: 10 RF: 0 Continued gemfibrozil [Lopid] 600 mg Tablet 600 mg PO BID RF: 0 hydrochlorothiazide 25 mg Tablet 25 mg PO DAILY RF: 0 cholecalciferol (vitamin D3) [Vitamin D3] 5,000 unit Tablet 5,000 unit PO DAILY RF: 0 Biktarvy 50-200-25 mg Tablet 1 tab PO DAILY RF: 0 Therm-M 1 tab PO DAILY RF: 0 Discharge Orders: Discharge Order (Routine); Ordered 09/09/19 Ordered By: Matt Sargent Admission Data Admit Date/Time: 09/07/19 23:51 Attending Provider: Matt Sargent Admit Provider: Uziel Arenas Primary Care Provider: [facility] Other Providers: Uziel Arenas ; Deng Funk
--- NOTE | 2019-09-09 15:32 | Cardiology Progress Note ---
Date of Service September 09, 2019 Assessment & Plan (1) Left-sided chest pain: Atypical in light of normal coronaries, likely secondary to HTN (2) Abnormal stress test: false positive study normal coronary arteries without atherosclerotic disease. (3) HTN (hypertension): Does have a long-standing history Has not been taking his hydrochlorothiazide last few days Will continue his hydrochlorothiazide but add lisinopril 20 mg daily for further blood pressure control and follow-up with primary physician as an outpatient He will need a BMP in 1 week after initiation of lisinopril. (4) Family history of premature CAD: Very strong family history with 3 first-degree relatives all developing coronary artery disease in their 40s Subjective Pt seen and examined, with complaint of pruritis this AM. Denies cp, sob, palpitations, lightheadedness or dizziness. tele reviewed: sinus rhythm without arrhythmia or significant ectopy. Review of Systems Review of Systems: All systems reviewed & are unremarkable except as noted in HPI & below Physical Exam Physical Exam: General: Awake, alert and oriented x 3. No acute distress. HEENT: Normocephalic, atraumatic. Pupils equal, round and reactive to light and accommodation. Extraocular muscles are intact. Anicteric sclera. Moist mucous membranes. Neck: No JVD. No bruit. Cardiovascular: Regular. Positive S-4. Normal S-1 and S-2. No S-3. No murmurs or rubs. Pulmonary: Clear to auscultation B/L. No rales, rhonchi or wheezing Abdomen: Bowel sounds x 4, soft. No rebound, guarding or tenderness. No organomegaly. Extremities: No clubbing, cyanosis or edema. +2 pedal pulses bilaterally. Skin: Warm and dry. Results & Data Vital Signs (Past 12 Hours) Vital Signs Temp Pulse Resp BP Pulse Ox 09/09/19 12:46 36.9 C 87 22 118/76 98 09/09/19 11:26 36.9 C 87 22 118/76 98 09/09/19 07:33 36.9 C 79 16 147/95 H 98 09/09/19 03:45 36.9 C 107 H 20 157/80 H 98
== END 2019-09-09 14:45 | disposition home or self-care (01) ==
LOC: ED 19:14 → 2E 19:14